=== PATIENT | male | born 1995 | race Two or more races ===

== ENCOUNTER 2016-11-15 16:10 | Emergency (ER) | payer OTHER ==
[~2016-11-15] VITALS: Ht 177.8 cm; Wt 95.3 kg
--- NOTE | 2016-11-15 16:38 | PHYS DOC ---
Adult General Chief Complaint Chief Complaint: PUNCTURE WOUND HPI HPI Patient is a 21 year old male who presents ambulatory to the ED with the complaint of a puncture wound to his left lower leg which occurred yesterday. The patient was using a pitchfork and accidentally poked himself in the leg while working. He cleaned it out with hydrogen peroxide and alcohol and he took a shower. He's had some continued pain and mild swelling of the area. It does hurt a little bit worse when he walks but he has been able to weight-bear without difficulty. Pt is in good general health, takes no medications. He had childhood immunizations but has not had a tetanus shot since he got out of high school. Review of Systems Review of Systems Constitutional: Denies fever or chills [] Musculoskeletal: Denies other injury other than as noted Current Medications Current Medications Current Medications Medications (Trade) Dose Ordered Sig/Carin Start Time Stop Time Status Last Admin Dose Admin Diphtheria/ Tetanus/Acell Pertussis (Boostrix) 0.5 ml ONCE ONCE 11/15/16 17:00 11/15/16 17:01 DC 11/15/16 16:54 0.5 ML Allergies Allergies Allergies Coded Allergies Type Severity Reaction Last Updated Verified No Known Drug Allergies 11/15/16 No Physical Exam Physical Exam Constitutional: Well developed, well nourished, no acute distress, non-toxic appearance. Alert, mentating normally, warm and dry. HENT: Normocephalic, atraumatic, bilateral external ears normal, nose normal. [ ] Eyes: conjunctiva normal, no discharge. [] Neck: Normal range of motion, no stridor. [] Skin: Warm, dry, no erythema, no rash. [] Extremities: Other than left lower: No tenderness, no cyanosis, no clubbing, ROM intact, no edema. Left lower extremity: There is a puncture wound over the medial aspect of the lower leg a few centimeters above the ankle. It appears clean and consistent with history. There is some mild surrounding tenderness but no evidence of cellulitis. Foot has full range of motion of the toes without pain. DP pulse is strong. Neurologic: Alert and oriented X 3, normal motor function, no focal deficits noted. [] Current Patient Data Vital Signs Vital Signs Date Time Temp Pulse Resp B/P (MAP) Pulse Ox O2 Delivery O2 Flow Rate FiO2 11/15/16 17:22 67 120/50 (73) 100 11/15/16 16:26 98.4 16 Room Air 98.4 EKG EKG [] Radiology/Procedures Radiology/Procedures Two-view x-ray of the left tib-fib read by me. No bony abnormality, no foreign body.[] Course & Med Decision Making Course & Med Decision Making Pertinent Labs and Imaging studies reviewed. (See chart for details) 21-year-old male presents with a puncture wound to his left lower leg from a pitchfork that occurred yesterday. He cleaned it well yesterday. There is no evidence of significant vascular or other significant injury. We will get x-ray and give him a tetanus shot. He is agreeable to that plan. No bony injury noted. See instructions for plan. [] Dragon Disclaimer Dragon Disclaimer This electronic medical record was generated, in whole or in part, using a voice recognition dictation system. Departure Departure Impression: Primary Impression: Puncture wound of left lower leg Condition: STABLE Patient Instructions: Puncture Wound, [id number] Additional Instructions: X-ray did not show any bone injury. You had a tetanus shot here today. For the next 2-3 days, I recommend that you stay off of the leg as much as possible, elevate as much as possible. This is to help reduce the swelling which will help it heal better. Bandage with a Band-Aid or light wrap. Don't wrap it too tight. We want to keep it open to allow any infection to drain out. Clean with a washcloth and soap and water in a bath or shower at least once a day. Clean it daily to help keep a scab from sealing it up. Watch it Carefully for signs of infection including increased redness, increased pain, drainage of pus. If any signs of this, return to your doctor or emergency. BUCK LUI MD Nov 15, 2016 16:38
[2016-11-15] MEDS ORDERED: DIPHTH,PERTUSS(ACELL),TET TOX 0.5 ML DISP.SYRIN. VAX IM ONE (17:00)
[2016-11-15 17:22] VITALS: BP 120/50
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
== END 2016-11-15 17:38 | disposition home or self-care (01) ==
LOC: ER 16:10
DX: S81.832A Puncture wound without foreign body, left lower leg, initial encounter (principal); W22.8XXA Striking against or struck by other objects, initial encounter; Y93.89 Activity, other specified; Y92.69 Other specified industrial and construction area as the place of occurrence of the external cause; Y99.8 Other external cause status
CPT/HCPCS: 73590; 90471; 90715; 99284-25